=== PATIENT | female | born 1965 | race Caucasian/White ===

== ENCOUNTER → 2017-03-10 | Outpatient (CLI) | payer BC ==
--- NOTE | 2017-03-10 16:35 | MAMMOGRAPHY REPORT ---
BILATERAL DIGITAL SCREENING MAMMOGRAM TOMOSYNTHESIS WITH CAD: 03/10/2017 CLINICAL HISTORY: Routine screening. Patient has no complaints. TECHNIQUE: Breast tomosynthesis in addition to standard 2D mammography was performed. Current study was also evaluated with a Computer Aided Detection (CAD) system. COMPARISON: Comparison is made to exams dated: 02/04/2016 mammogram, 12/19/2014 mammogram, 11/26/2013 m ammogram, 11/02/2012 mammogram, and 10/27/2011 mammogram - [facility]. BREAST COMPOSITION: The tissue of both breasts is heterogeneously dense, which may obscure small ma sses. FINDINGS: There is an 8 mm nodular asymmetry seen within the left superior breast middle depth on t he MLO view only, which may represent normal overlapping fibroglandular tissue although spot daniel meet tomosynthesis views and possible breast ultrasound are recommended for further evaluation. The remainder of both breasts are stable compared to prior exams, without suspicious masses, calcifi cations, or areas of architectural distortion noted. Scattered benign-appearing right breast calcif ications are not significantly changed. IMPRESSION: ACR BI-RADS CATEGORY 0: INCOMPLETE EVALUATION: NEED ADDITIONAL IMAGING EVALUATION Left superior breast asymmetry, for which additional imaging evaluation is recommended. The patient will be called to schedule an appointment. Approximately 10% of breast cancers are not detected with mammography. A negative mammographic repor t should not delay biopsy if a clinically suggestive mass is present. Sonia Levy M.D. /:03/10/2017 16:16:58 Account Manager [employer]: Kelsy WOODY(Diann)(Alie), [facility] letter sent: Addl Imaging 0 BI-RADS Code: ACR BI-RADS Category 0: Incomplete Evaluation: Need Additional Imaging Evaluation
== END | disposition home or self-care (01) ==
LOC: C.MAMM 14:02
PROVIDERS: ATTEND Obstetrics & Gynecology
DX: Z12.31 Encounter for screening mammogram for malignant neoplasm of breast (principal); N64.89 Other specified disorders of breast

== ENCOUNTER → 2017-03-23 | Outpatient (CLI) | payer BC ==
--- NOTE | 2017-03-23 13:33 | MAMMOGRAPHY REPORT ---
UNILATERAL LEFT DIGITAL DIAGNOSTIC MAMMOGRAM TOMOSYNTHESIS AND TARGETED LEFT ULTRASOUND: 03/23/2017 CLINICAL HISTORY: Callback from screening mammogram for left breast asymmetry. TECHNIQUE: Breast tomosynthesis in addition to standard 2D mammography was performed. Spot daniel meet left MLO and ML 2-D and tomosynthesis images were obtained. COMPARISON: Comparison is made to exams dated: 03/10/2017 mammogram, 02/04/2016 mammogram, 12/19/2014 mammogram, 11/26/2013 mammogram, 11/02/2012 mammogram, and 10/27/2011 mammogram - [facility]. BREAST COMPOSITION: The tissue of the left breast is heterogeneously dense, which may obscure small masses. FINDINGS: The previously described asymmetry seen within the left superior breast on the MLO view ef faces to a baseline appearance on the additional views, and has the appearance of normal fibroglandu lar tissue on the tomosynthesis images. No suspicious mass or architectural distortion is noted on the additional images. A 14 mm mass is seen overlying the left pectoralis muscle on the additional images, which appears similar to prior exams including the 2011 and 2013 exams and is benign given l cheko-term stability and likely represents a normal axillary lymph node. Targeted ultrasound was performed of the left superior breast in the region of the mammographic asym metry. Sonographically normal tissue is seen, without evidence of a suspicious mass or other suspic ious sonographic abnormality. IMPRESSION: ACR BI-RADS CATEGORY 2: BENIGN, TARGETED ULTRASOUND ACR BI-RADS CATEGORY 2: BENIGN The left breast asymmetry effaces to a baseline appearance on the additional views, without correspo nding sonographic abnormalities evident. The asymmetry is benign and compatible with normal overlap ping fibroglandular tissue. There is no mammographic or targeted sonographic evidence of malignancy . A 1 year screening mammogram is recommended. The patient has been verbally notified of the result s. Approximately 10% of breast cancers are not detected with mammography. A negative mammographic repor t should not delay biopsy if a clinically suggestive mass is present. Sonia Levy M.D. /:03/23/2017 08:37:13 It Engineer: Kelsy LANDEROS)(Alie), [facility] letter sent: Normal 1/2 BI-RADS Code: ACR BI-RADS Category 2: Benign Ultrasound BI-RADS: ACR BI-RADS Category 2: Benign
== END | disposition home or self-care (01) ==
LOC: C.MAMM 08:02
PROVIDERS: ATTEND Obstetrics & Gynecology
DX: N64.89 Other specified disorders of breast (principal)